=== PATIENT | female | born 1950 | race Caucasian/White ===

== ENCOUNTER 2016-12-23 14:11 | Emergency (ER) | payer OTHER ==
[~2016-12-23] VITALS: Ht 170.2 cm; Wt 86.6 kg
[2016-12-23 19:28] VITALS: BP 130/89
== END 2016-12-23 19:28 | disposition home or self-care (01) ==
LOC: ED 14:11
DX: S52.121A Displaced fracture of head of right radius, initial encounter for closed fracture (principal); E03.9 Hypothyroidism, unspecified; Z88.5 Allergy status to narcotic agent; W01.0XXA Fall on same level from slipping, tripping and stumbling without subsequent striking against object, initial encounter; Y93.89 Activity, other specified; Y92.481 Parking lot as the place of occurrence of the external cause; Y99.8 Other external cause status
CPT/HCPCS: J2704; J3010